=== PATIENT | female | born 1960 | race Caucasian/White ===

== ENCOUNTER 2018-09-22 05:52 | Day surgery (SDC) | payer MEDICARE ==
[2018-09-20 16:58] VITALS: BMI 43.3
[2018-09-22] MEDS ORDERED: PROPOFOL 20 ML ONE (06:25)
[2018-09-22] MEDS ORDERED: Fentanyl 100 MCG/2 ML VIAL ONE (07:45)
[2018-09-22] MEDS ORDERED: Bupivacaine HCl 0.5%/Epinephrine 1:200,000/PF 30 ml Vial ONE (14:48)
[2018-09-22] MEDS ORDERED: Lidocaine 2% w/Epinephrine 1:200K 20 ML VIAL ONE (14:48)
--- NOTE | 2018-09-22 15:03 | OP ---
DATE OF PROCEDURE: 09/22/2018 PREOPERATIVE DIAGNOSIS: Left knee medial meniscus tear. POSTOPERATIVE DIAGNOSES: 1. Left knee medial meniscus tear of posterior horn. 2. Loose body in the notch, greater than 1 cm. 3. 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 PROCEDURES PERFORMED: 1. Left knee arthroscopy with partial medial meniscectomy. 2. Removal of loose body greater than 1 cm. SURGEON: Yeison Vázquez MD OFFSET PRINTING OPERATOR: None. BLOOD LOSS: Minimal. COMPLICATIONS: None. DISPOSITION: She went to recovery in stable condition. ANESTHESIA: She had a general anesthetic as well as a local knee block. INDICATIONS: This is a 58-year-old female, who was tried for months to deal with left knee pain with swelling and discomfort. We have tried all nonoperative treatment including injections. This was found to give little bit of relief she wants. At this time, she opted to have surgery. DESCRIPTION OF PROCEDURE: After all appropriate consent forms were explained and signed, she was taken back to the operative room and at this time was given general anesthetic. Once the level of anesthesia was appropriate, a tourniquet was placed on the left thigh and the left leg was then placed in arthroscopic leg nolan. The limb was then prepped and draped in standard surgical fashion. The limb was exsanguinated, and tourniquet was taken up to 300 mmHg. Inferolateral portal was established. Scope was placed into the knee joint. A needle localization technique was then used to make a medial working portal. Diagnostic arthroscopy commenced in the notch. ACL and PCL were probed, found to be intact. There was a large loose body noted to the medial aspect of the ACL and this was removed with a grasper as well as the shaver. Once this was done, we evaluated the medial compartment. The medial compartment was found to have some significant grade 4 changes on the medial femoral condyle. There was also a small area on the medial tibial plateau. This was essentially covered up by the body and anterior horn of the medial meniscus. The lateral compartment was intact. The gutters were swept through. There was a small loose body noted in the medial gutter and this was removed with the shaver. Lateral gutter was clean. There were some osteophytes growing off the medial femoral condyle. The patellofemoral joint again showed some central grade 4 trochlear lesion as well as the central facet of the patella. Loose cartilage flaps were debrided. At this time, scope was removed. Knee was drained. Portals were closed with simple nylon stitch. Bulky sterile dressing was applied. Tourniquet was let down and the toes pinked up nicely. She was awakened, taken to recovery room in stable condition. All counts were correct at the end of the case. She did receive preoperative IV antibiotics. Job ID: [id number] [facility]
[2018-09-22] MEDS ORDERED: PROPOFOL 200 MG/20 ML VIAL ONE (15:11)
[2018-09-22] MEDS ORDERED: Ondansetron PF 4 MG/2 ML Vial ONE (15:11)
[2018-09-22] MEDS ORDERED: Metoclopramide HCl 10 MG/2 ML VIAL ONE (15:11)
== END 2018-09-22 10:30 | disposition home or self-care (01) ==
LOC: SDC 05:52
PROVIDERS: ATTEND Orthopaedic Surgery
PROC: 0SBD4ZZ Excision of Left Knee Joint, Percutaneous Endoscopic Approach (ICD-10-PCS; principal; 2018-09-22)
DX: S83.242A Other tear of medial meniscus, current injury, left knee, initial encounter (principal); M94.262 Chondromalacia, left knee
CPT/HCPCS: 36416; J0670; J0690; J2405; J2704; J2765; J3010

== ENCOUNTER 2019-03-02 06:33 | Day surgery (SDC) | payer MEDICARE ==
[2019-03-01 10:14] VITALS: BMI 46.0
[2019-03-02] MEDS ORDERED: Lidocaine 1% (PF) 30 ML VIAL ONE (07:06)
[2019-03-02] MEDS ORDERED: Heparin (Artline) 1,000 ML ONE (07:06)
[2019-03-02 08:16] LABS: ALT (SGPT) 36 U/L (8-55); AST (SGOT) 51 U/L (5-34); Albumin 4.2 g/dL (3.5-5.0); Alkaline Phosphatase 132 U/L (40-110); Anion Gap 15 mmol/L (10-20); BUN (Urea Nitrogen) 16 mg/dL (9.8-20.1); Bilirubin, Total 1.2 mg/dL (0.2-1.2); Calc. Creatinine Clearance 56 mL/min (70-130); Calcium 9.9 mg/dL (7.8-10.44); Carbon Dioxide 21 mmol/L (22-29); Chloride 109 mmol/L (98-107); Estimated GFR-MDRD 28; Globulin 2.7 g/dL (2.4-3.5); Glucose 165 mg/dL (70-105); Protein, Total 6.9 g/dL (6.0-8.3); Sodium 141 mmol/L (136-145)
[2019-03-02] MEDS ORDERED: Midazolam HCl 2 mg/2 ml Vial ONE (09:22)
[2019-03-02] MEDS ORDERED: Fentanyl 100 MCG/2 ML VIAL ONE (09:22)
== END 2019-03-02 15:08 | disposition home or self-care (01) ==
LOC: CCL 06:33
PROVIDERS: ATTEND Internal Medicine Cardiovascular Disease
PROC: 4A023N7 Measurement of Cardiac Sampling and Pressure, Left Heart, Percutaneous Approach (ICD-10-PCS; principal; 2019-03-02)
PROC: B2111ZZ Fluoroscopy of Multiple Coronary Arteries using Low Osmolar Contrast (ICD-10-PCS; 2019-03-02)
DX: R07.9 Chest pain, unspecified (principal); F31.9 Bipolar disorder, unspecified; I12.9 Hypertensive chronic kidney disease with stage 1 through stage 4 chronic kidney disease, or unspecified chronic kidney disease; E11.22 Type 2 diabetes mellitus with diabetic chronic kidney disease; N18.3 Chronic kidney disease, stage 3 (moderate); E78.5 Hyperlipidemia, unspecified; E66.9 Obesity, unspecified; Z68.42 Body mass index [BMI] 45.0-49.9, adult; Z79.4 Long term (current) use of insulin; Z79.899 Other long term (current) drug therapy
CPT/HCPCS: 76942; 80053; 93458; 99152; C1769; J1644; J2001; J2250; J3010

== ENCOUNTER 2022-08-08 09:25 | Outpatient (CLI) | payer OTHER | END 2022-08-08 09:26 | disposition home or self-care (01) | LOC: CT 09:25 | PROVIDERS: ATTEND Internal Medicine Cardiovascular Disease | DX: R07.9 Chest pain, unspecified (principal) | CPT/HCPCS: 71250; 82565 ==

== ENCOUNTER 2025-01-26 18:42 | Observation (INO) | payer OTHER ==
[2025-01-26] MEDS ORDERED: Communication Order-Pharmacy FS SCH (18:45)
[2025-01-26 19:00] VITALS: BMI 44.3
[2025-01-26 20:12] LABS: #Basophils 0.04 10x3/uL (0.0-0.2); #Eosinophils 0.16 10x3/uL (0.0-0.7); #Monocytes 0.38 10x3/uL (0.11-0.59); #Neutrophils 2.73 10x3/uL (1.40-6.50); %Basophils 0.8 % (0.0-1.0); %Eosinophils 3.4 % (0.0-10.0); %Lymphocytes 29.4 % (21.0-51.0); %Monocytes 8.1 % (0.0-10.0); %Neutrophils 57.9 % (42.0-75.0); Hematocrit 31.6 % (36.0-47.0); Hemoglobin 10.0 g/dL (12.0-16.0); Mean Corpuscular Hemoglobin 27.5 pg (27.0-31.0); Mean Corpuscular Volume 91.0 fL (78.0-98.0); Platelet Count 87 10x3/uL (130-400); Red Blood Cell (RBC) Count 3.57 mill/uL (4.20-5.40); White Blood Cell (WBC) Count 4.72 10x3/uL (4.8-10.8)
[2025-01-26 20:26] LABS: ALT (SGPT) 27 U/L (Less than 34); AST (SGOT) 43 U/L (11-34); Albumin 3.9 g/dL (3.1-4.5); Alkaline Phosphatase 137 U/L (40-110); Anion Gap 14 mmol/L (10-20); BUN (Urea Nitrogen) 21 mg/dL (9.8-20.1); Bilirubin, Total 0.7 mg/dL (0.3-1.2); Calc. Creatinine Clearance 49 mL/min (70-130); Calcium 9.7 mg/dL (7.8-10.44); Carbon Dioxide 24 mmol/L (23-31); Chloride 107 mmol/L (98-107); Globulin 2.8 g/dL (2.4-3.5); Glucose 125 mg/dL (80-115); Potassium 4.3 mmol/L (3.5-5.1); Sodium 141 mmol/L (136-145)
[2025-01-27] MEDS: Ondansetron PF 4 MG/2 ML Vial IVP PRN ×2 (00:56→14:39)
[2025-01-27 05:12] LABS: ALT (SGPT) 25 U/L (Less than 34); AST (SGOT) 43 U/L (11-34); Albumin 3.6 g/dL (3.1-4.5); Alkaline Phosphatase 123 U/L (40-110); Anion Gap 13 mmol/L (10-20); BUN (Urea Nitrogen) 17 mg/dL (9.8-20.1); Bilirubin, Total 0.8 mg/dL (0.3-1.2); Calc. Creatinine Clearance 52 mL/min (70-130); Calcium 9.2 mg/dL (7.8-10.44); Carbon Dioxide 24 mmol/L (23-31); Chloride 107 mmol/L (98-107); Globulin 2.5 g/dL (2.4-3.5); Glucose 129 mg/dL (80-115); Potassium 4.2 mmol/L (3.5-5.1); Sodium 140 mmol/L (136-145)
[2025-01-27] MEDS ORDERED: Heparin 10,000 UNITS/ 10 ML VIAL ONE (09:11)
[2025-01-27] MEDS ORDERED: Lidocaine 1% (PF) 30 ML VIAL ONE (09:11)
[2025-01-27] MEDS ORDERED: Adenosine 6 mg (2 mL) VIAL ONE (09:11)
[2025-01-27] MEDS ORDERED: Nitroglycerin 50 MG/250 ML BOT 0 ML ONE (09:12)
[2025-01-27] MEDS ORDERED: EPINEPHrine 1 MG/10 ML Abboject SYRINGE ONE (10:13)
[2025-01-27] MEDS ORDERED: PHENYLEPHRINE-NS 100 MCG/ML 10 ML SYRINGE ONE (10:13)
[2025-01-27] MEDS ORDERED: hydrALAZINE 20 MG/ML VIAL ONE (11:24)
[2025-01-27] MEDS ORDERED: Acetaminophen/Codeine 30-300mg Tablet PO PRN (11:34)
[2025-01-27] MEDS ORDERED: Nitroglycerin 0.4 MG TAB (25 Tab Bottle) SL PRN (11:34)
[2025-01-27 12:01] VITALS: TEMP 98.4
[2025-01-27] MEDS ORDERED: Ondansetron HCl/PF 4 MG in Sodium Chloride 0.9% 50 ML IVPB PRN (13:37)
[2025-01-27 14:06] LABS: #Basophils 0.05 10x3/uL (0.0-0.2); #Eosinophils 0.13 10x3/uL (0.0-0.7); #Monocytes 0.34 10x3/uL (0.11-0.59); #Neutrophils 3.75 10x3/uL (1.40-6.50); %Basophils 0.9 % (0.0-1.0); %Eosinophils 2.4 % (0.0-10.0); %Lymphocytes 19.2 % (21.0-51.0); %Monocytes 6.3 % (0.0-10.0); %Neutrophils 69.2 % (42.0-75.0); Hematocrit 31.0 % (36.0-47.0); Hemoglobin 9.6 g/dL (12.0-16.0); Mean Corpuscular Hemoglobin 27.4 pg (27.0-31.0); Mean Corpuscular Volume 88.6 fL (78.0-98.0); Platelet Count 94 10x3/uL (130-400); Red Blood Cell (RBC) Count 3.50 mill/uL (4.20-5.40); White Blood Cell (WBC) Count 5.42 10x3/uL (4.8-10.8)
[2025-01-27 16:32] VITALS: BP 155/70
[2025-01-27] MEDS ORDERED: TRINTELLIX 10 MG PO SCH (21:00)
[2025-01-27] MEDS ORDERED: QUEtiapine 100 MG TAB PO SCH (21:00)
[2025-01-27] MEDS ORDERED: Famotidine 20 MG TAB PO SCH (21:00)
[2025-01-27] MEDS ORDERED: Rosuvastatin 20 MG TAB PO SCH (21:00)
== END 2025-01-27 18:50 | disposition home or self-care (01) ==
LOC: 2NO 18:46
PROVIDERS: ADMIT Internal Medicine Cardiovascular Disease; ATTEND Internal Medicine Cardiovascular Disease
DX: R94.39 Abnormal result of other cardiovascular function study (principal); E11.9 Type 2 diabetes mellitus without complications; E78.5 Hyperlipidemia, unspecified; I10 Essential (primary) hypertension
CPT/HCPCS: 80053 ×2; 85025 ×2; C1769; C1887; J0360; J2003; J2250; J2405; J3010; J7030 ×2; 36415; 93454; 99152; 99153; C1894; J0153; J0165; J0461; J1644